=== PATIENT | male | born 1985 ===

== ENCOUNTER 2017-05-12 14:51 | Emergency (ER) | payer OTHER ==
[2017-05-12 14:58] VITALS: O2SAT 98
[2017-05-12] MEDS ORDERED: Naproxen 550 mg Tab PO STA (15:07)
[2017-05-12] MEDS ORDERED: Tdap Vaccine 0.5 ml Vial (10-64 yrs) IM ONE ×2 (15:07→15:19)
[2017-05-12] MEDS ORDERED: Naproxen 550 mg Tab PO ONE (15:19)
--- NOTE | 2017-05-12 15:29 | RAD ---
PROCEDURE: Right Index finger radiographs. HISTORY: lac to pip, eval for fx, ?bone frag COMPARISON: None. TECHNIQUE: AP radiograph of the right hand, as well as spot oblique and lateral images of index finger were obtained. FINDINGS: RIGHT INDEX FINGER: Normal right index finger, without fracture or focal lesion. Remainder of the right hand (as seen on the AP view) grossly intact. JOINTS: Normal. SOFT TISSUES: There is evidence of soft tissue irregularity over the dorsal aspect of the 2nd PIP joint OTHER FINDINGS: None. IMPRESSION: No acute fracture.
--- NOTE | 2017-05-12 16:04 | C.PDOC ---
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 pt c/o pain, no numbness, painful movement. pt sts something white sticking out of laceration. last tdap unknown. Time Seen by Provider: 05/12/17 15:05 Chief Complaint (Nursing): Abnormal Skin Integrity History Per: Patient History/Exam Limitations: no limitations Onset/Duration Of Symptoms: Hrs (1) Current Symptoms Are (Timing): Still Present Location Of Injury: Right: Hand (second finger) Quality Of Symptoms: Painful Past Medical History Reviewed: Historical Data, Nursing Documentation, Vital Signs Vital Signs: Last Vital Signs Temp 97.7 F 05/12/17 18:09 Pulse 88 05/12/17 18:09 Resp 20 05/12/17 18:09 BP 124/82 05/12/17 18:09 Pulse Ox 98 05/12/17 18:20 - Medical History PMH: No Chronic Diseases Family History: States: Unknown Family Hx - Social History Hx Alcohol Use: No Hx Substance Use: No - Immunization History Hx Tetanus Toxoid Vaccination: No Hx Influenza Vaccination: No Hx Pneumococcal Vaccination: No Review Of Systems Constitutional: Negative for: Fever, Chills Skin: Positive for: Other (laceration right knuckle) Neurological: Negative for: Weakness, Numbness Physical Exam - Physical Exam Appears: Non-toxic, No Acute Distress Skin: Warm, Dry, Other (almost circular (About 3/4 around) with 3 mm x 4 mm white tissue protruding from wound. ) Extremity: Other (rioght index fringer able to flex and extend fully against resistance, with pain, normal cap refill, sensation intact. from all other fingers, ) Pulses: Right Radial: Normal ED Course And Treatment O2 Sat by Pulse Oximetry: 98 Laceration - Laceration Repair right index finger Wound Length (In cm): 2 Description Of Wound: Irregular Wound Cleansed With: Sterile Saline Anesthesia: Lidocaine 2% Wound Examination: Irrigated With Saline, No FB With Wound Exploration Wound Closure: Suture (4-0 ethilon, # 4 sutures) Suture Technique And Material Used: Interrupted Wound Complexity: Simple Medical Decision Making Medical Decision Making: pt with ?fx with with either protruding bone or tendon laceration; xray, tdap, hand consult xray neg for fx, pt with from finger, ? tendon laceration. Discussed with Dr Boss, recommends few sutures skin closure, finger splint and f/u wednesday in his office. Disposition - Disposition Referrals: Bart Meyer MD [Staff Provider] - Disposition: HOME/ ROUTINE Disposition Time: 18:00 Condition: GOOD Additional Instructions: Mantenga el vendaje y la frula en el dedo hasta que lo radha el Dr. Meyer el viernes. [place] antibiticos segn lo prescrito. Ibuprofeno para el dolor Llame al despacho del Dr. Meyer el jueves para programar tara delia en : dgales que lo vieron en el departamento de emergencias el mircoles y le dijeron que lo siguiera el viernes. Keep dressing and splint on finger until seen by Dr Meyer on Wednesday. Take antibiotics as prescribed. Ibuprofen for pain. Call Dr Meyer's ooffice on for appointment on - tell them you were seen in the ED on Wed and told to follow up Wednesday. Prescriptions: Cephalexin [Keflex] 500 mg PO Q6 #28 capsule Ibuprofen [Motrin] 600 mg PO TID #30 tab Instructions: Laceration Repair With Stitches (DC), Tendon Laceration (DC) Forms: Gen Discharge Inst Austrian, [facility] (Austrian), Work Excuse Print Language: GREENLANDIC - Clinical Impression Clinical Impression: Laceration of right index finger with tendon involvement
[2017-05-12] MEDS ORDERED: Bacitracin 500 Units/gm Oint Foilpak UD ONE (17:52)
[2017-05-12 18:13] VITALS: BP 124/82; PULSE 88; RESP 20; TEMP 97.7
== END 2017-05-12 18:09 | disposition home or self-care (01) ==
LOC: C.ER 14:51
DX: S61.210A Laceration without foreign body of right index finger without damage to nail, initial encounter (principal); W29.0XXA Contact with powered kitchen appliance, initial encounter; Y93.G1 Activity, food preparation and clean up; Y92.89 Other specified places as the place of occurrence of the external cause; Y99.0 Civilian activity done for income or pay; Z23 Encounter for immunization